=== PATIENT | female | born 1995 | race Two or more races ===

== ENCOUNTER 2024-03-23 03:06 | Emergency (ER) | payer MEDICAID, OTHER ==
[~2024-03-23] VITALS: Ht 165.1 cm; Wt 68.2 kg
[2024-03-23] MEDS: SODIUM CHLORIDE 0.9% 1,000 ML IV ONE (03:45)
[2024-03-23 05:31] VITALS: BP 107/64; PULSE 108; RESP 20; TEMP 98.1; O2SAT 99
== END 2024-03-23 05:33 | disposition home or self-care (01) ==
LOC: ER 03:06 → EDBD 03:06 → ER 05:33
DX: H57.13 Ocular pain, bilateral (principal); Z77.098 Contact with and (suspected) exposure to other hazardous, chiefly nonmedicinal, chemicals
CPT/HCPCS: 96360; 99284; J7030